=== PATIENT | male | born 1990 | race African-American/Black ===

== ENCOUNTER 2018-08-19 07:56 | Emergency (ER) | payer MEDICAID ==
[~2018-08-19] VITALS: Ht 190.5 cm; Wt 94.0 kg
[2018-08-19] MEDS ORDERED: MORPHINE SULFATE 10 MG/ML CPJ IM ONE (10:45)
[2018-08-19] MEDS ORDERED: BACITRACIN ZINC OINT UDPKT TOP ONE (10:45)
[2018-08-19] MEDS ORDERED: ONDANSETRON 4MG ODT PO ONE (10:45)
[2018-08-19] MEDS ORDERED: LIDOCAINE 1%/EPI 1:100,000 10 ML VIAL IJ ONE (10:45)
[2018-08-19] MEDS ORDERED: MORPHINE SULFATE 4 MG/ML CPJ (NOT FOR IM USE) IV ONE (11:39)
[2018-08-19] MEDS ORDERED: FENTANYL CITRATE/PF 50MCG/ML 2ML VIAL IM ONE (13:15)
[2018-08-19 14:31] VITALS: BP 110/69
== END 2018-08-19 14:34 | disposition home or self-care (01) ==
LOC: ER 09:14
DX: K61.1 Rectal abscess (principal); F17.200 Nicotine dependence, unspecified, uncomplicated
CPT/HCPCS: 46040; 96372; 99284; J2270; J3010; J3490; Q0162

== ENCOUNTER 2021-11-02 23:26 | Emergency (ER) | payer MEDICAID ==
[~2021-11-02] VITALS: Ht 185.4 cm; Wt 108.0 kg
[2021-11-03] MEDS ORDERED: ACETAMINOPHEN 500MG TABLET PO ONE (00:15)
[2021-11-03 00:48] VITALS: BP 132/67
== END 2021-11-03 00:50 | disposition home or self-care (01) ==
LOC: ER 23:26
DX: F19.10 Other psychoactive substance abuse, uncomplicated (principal); F14.10 Cocaine abuse, uncomplicated; F12.10 Cannabis abuse, uncomplicated; R10.9 Unspecified abdominal pain; B20 Human immunodeficiency virus [HIV] disease
CPT/HCPCS: 93005; 99283

== ENCOUNTER 2022-07-14 07:07 | Emergency (ER) | payer MEDICAID ==
[~2022-07-14] VITALS: Ht 190.5 cm; Wt 102.0 kg
[2022-07-14] MEDS ORDERED: MORPHINE SULFATE 4 MG/ML CPJ (NOT FOR IM USE) IV STA (07:21)
[2022-07-14] MEDS ORDERED: ONDANSETRON HCL 4MG/2ML INJ IV STA (07:21)
[2022-07-14 07:46] VITALS: BP 137/116
== END 2022-07-14 11:47 | disposition left against medical advice (07) ==
LOC: ER 07:07
DX: R10.9 Unspecified abdominal pain (principal); B20 Human immunodeficiency virus [HIV] disease
CPT/HCPCS: 74176; 99284